=== PATIENT | male | born 1985 | race Caucasian/White ===

== ENCOUNTER → 2021-08-09 | Outpatient (CLI) | payer SELFPAY ==
[2021-08-09 12:43] LABS: AST(SGOT) 19 U/L (15-37); Alanine Aminotransfer ALT/SGPT 24 U/L (16-61); Albumin, Serum 3.7 g/dL (3.2-5.0); Alkaline Phosphatase 63 U/L (45-117); Amylase 66 U/L (25-115); Globulin 3.7 g/dL (2.2-4.2); Lipase 145 U/L (73-393); Protein, Total 7.4 g/dL (6.4-8.2)
== END | disposition home or self-care (01) ==
PROVIDERS: PCP Family Medicine; Referring Provider Family Medicine; Visit Provider Family Medicine
DX: R10.13 Epigastric pain (principal)
CPT/HCPCS: 36415; 80076; 82150; 83690

== ENCOUNTER → 2021-08-23 | Outpatient (CLI) | payer SELFPAY ==
--- NOTE | 2021-08-23 09:51 | US_ITS ---
STUDY: ABDOMINAL ULTRASOUND REASON FOR EXAM: Male, 36 years old. ABDOMINAL PAIN TECHNIQUE: Transabdominal ultrasound was performed with real-time and static weir scale imaging. COMPARISON: None. FINDINGS: Liver: There is increased echogenicity consistent with fatty infiltration. The bile ducts are within normal limits. There is hepatic color flow. The direction of portal flow is hepatopetal. There is no demonstrated mass lesion. Gallbladder: Normal distended gallbladder. The gallbladder wall measures 2 mm. There is a negative sonographic White''s sign. There is no pericholecystic fluid. There are no gallstones. Common Bile Duct (C.B.D.): It is not seen. There is too much overlying bowel gas. Pancreas: It is not visualized. There is too much overlying bowel gas. Spleen: Normal size of the spleen. The spleen measures 8.7 cm. Right Kidney: Normal size of the right kidney. The right kidney measures 10.5 cm. .There is a normal cortex of the kidney. There is no demonstrated renal mass or cyst. There is no right hydronephrosis. Left Kidney: Normal size of the left kidney. The left kidney measures 11.7 cm. . There is a normal cortex of the left kidney. Simple left renal cyst is 13mm. No follow-up required. There is no left hydronephrosis. Aorta: 19 mm in maximal aortic diameter. I.V.C.: The IVC is patent. There is no ascites. US/Abdomen Complete IMPRESSION: Fatty liver. Electronically Signed: Jose Castañeda MD at 17:14 EDT ,
== END | disposition home or self-care (01) ==
PROVIDERS: PCP Family Medicine; Referring Provider Family Medicine; Visit Provider Family Medicine
DX: R10.13 Epigastric pain (principal)
CPT/HCPCS: 76700